=== PATIENT | male | born 1960 | race Caucasian/White ===

== ENCOUNTER 2017-08-27 06:04 | Emergency (ER) | payer OTHER ==
[~2017-08-27] VITALS: Ht 162.6 cm; Wt 68.0 kg
[~2017-08-27 06:04] MED LIST: CLON0.1T14 PO; DIAZ10TA3 PO; DIAZ5TAB3 PO; GABA-486 PO; GABA-490 PO; IBUP-30 PO; LISI20TA PO; PROP20TA5 PO; VENL150T4 PO; VITAMIN B12
--- NOTE | 2017-08-27 06:40 | ED Cough/URI ---
General Chief Complaint: Respiratory Problems Stated Complaint: COUGH,WEAKNESS Source: patient (LIMITED HISTORIAN ABOUT PMH) History of Present Illness Time seen by provider: 06:26 Initial Comments PT ARRIVES VIA POV FROM HOME C/O NON-PRODUCTIVE COUGH AND SHORTNESS OF BREATH X 2 WEEKS NO FEVER NO CHEST PAIN SEEN BY [facility] 10 DAYS AGO AND WAS PLACED ON CIPRO AND MUCINEX-- NO IMPROVEMENT IN SYMPTOMS NO HISTORY OF SIMILAR NO HISTORY OF RESPIRATORY PROBLEMS SMOKES 1 PPD PT IS ADAMANT ON ARRIVAL THAT HE WILL NOT BE STAYING IN THE HOSPITAL PCP: DR. MCKEON/[facility] Allergies and Home Medications Allergies Coded Allergies: Ulvufov-Yib-Aef Reductase Inhibitor (Verified Allergy, Mild, NAUSEA, ) Sulfa (Sulfonamide Antibiotics) (Unverified Allergy, Unknown, 06/04/14) aspirin (Unverified Allergy, Unknown, 06/04/14) Home Medications Albuterol Sulfate 1 Puff Puff, 2 PUFF IH Q4H, #1 Prescribed by: TYRELL ISBELL on 08/27/17 0838 Benzonatate 100 Mg Capsule, 1-2 TAB PO TID, #30 Prescribed by: TYRELL ISBELL on 08/27/17 0838 Cefdinir 300 Mg Capsule, 300 MG PO BID, #20 Prescribed by: TYRELL ISBELL on 08/27/17 0838 Clonidine HCl 0.1 Mg Tablet, 0.1 MG PO BID, (Reported) Diazepam 10 Mg Tablet, 30 MG PO AM, (Reported) Diazepam 10 Mg Tablet, 30 MG PO PM, (Reported) Ibuprofen 200 Mg Tablet, 400 MG PO HS, (Reported) Lisinopril 20 Mg Tablet, 40 MG PO DAILY, (Reported) Methylprednisolone 4 Mg Tab.ds.pk, 4 MG PO UD, #1 Prescribed by: TYRELL ISBELL on 08/27/17 0838 Propranolol Hcl 20 Mg Tablet, 20 MG PO BID, (Reported) Venlafaxine Hcl 150 Mg Tab.osm.24, 300 MG PO DAILY, (Reported) [Vitamin B12] , (Reported) Constitutional: no symptoms reported, No chills, No fever EENTM: no symptoms reported Respiratory: see HPI, cough, short of breath Cardiovascular: no symptoms reported Gastrointestinal: no symptoms reported Genitourinary: no symptoms reported Musculoskeletal: no symptoms reported Skin: no symptoms reported Psychiatric/Neurological: No Symptoms Reported Hematologic/Lymphatic: No Symptoms Reported Immunological/Allergic: no symptoms reported Past Pulesuz-Erpjzg-Wodkvh Hx Patient Social History Alcohol Use: Regular Use (ON PRIOR VISITS HAS STATED --A COUPLE OF OZ OF WINE + NO MORE THAN 3 BEERS/DAY. ON 08/27/17, PT STATES "A COUPLE OF SHOTS OF VODKA A DAY") Recreational Drug Use: No Smoking Status: Current Everyday Smoker (1 PPD) Type Used: Cigarettes Recent Foreign Travel: No Contact w/Someone Who Travel: No Surgeries History of Surgeries: Yes (COLONOSCOPY; CATARACT SURGERY) Surgeries: Eye Surgery Respiratory History of Respiratory Disorde: No Cardiovascular History of Cardiac Disorders: Yes Cardiac Disorders: High Cholesterol, Hypertension Neurological History of Neurological Disord: No Reproductive System Hx Reproductive Disorders: No Genitourinary History of Genitourinary Disor: No Gastrointestinal History of Gastrointestinal Di: No (NORMAL COLONOSCOPY 2013) Musculoskeletal History of Musculoskeletal Dis: Yes Musculoskeletal Disorders: Fibromyalgia, Chronic Back Pain Endocrine History of Endocrine Disorders: No HEENT History of HEENT Disorders: Yes HEENT Disorders: Cataract Cancer History of Cancer: No Psychosocial History of Psychiatric Problem: Yes Behavioral Health Disorders: Sleep Difficulties, Anxiety, Depression Integumentary History of Skin or Integumenta: No Blood Transfusions History of Blood Disorders: No Family Medical History Family Medial History: Alcoholism mother brother Alzheimer's disease 19 FATHER Arthritis Cardiovascular disease paternal grandmother, maternal grandmother, Cataracts 19 FATHER 19 MOTHER G8 BROTHER paternal grandmother maternal grandmother, Dementia 19 FATHER Diabetes mellitus paternal grandfather, Fibrocystic disease of breast 19 MOTHER Hypertension 19 FATHER Myocardial infarction paternal grandfather, No Family History of: AIDS Abdominal aortic aneurysm Tony's disease Aphasia Asthma Cancer of mouth Colon cancer Completed stroke Congenital disease Congenital heart disease Coronary thrombosis Cystic fibrosis Deafness or hearing loss Drug abuse Dysphasia Gastroenteritis Glaucoma Headache disorder Hypercholesterolemia Infertility Not obtainable due to adoption Osteoporosis Parkinson's disease Prostate cancer Psychosocial problem Respiratory disorder Seizure disorder Severe allergy Thyroid disease Tuberculosis Visual disorder Physical Exam Vital Signs Vital Sign - Last 12Hours 08/27/17 06:30 Temp 99.4 Pulse 109 Resp 18 B/P (MAP) 126/79 (95) Pulse Ox 92 O2 Delivery Nasal Cannula O2 Flow Rate 3.00 Capillary Refill : General Appearance: WD/WN, no apparent distress, other (VERY TREMULOUS) HEENT: PERRL/EOMI, normal ENT inspection, TMs normal, pharynx normal Neck: non-tender, full range of motion, supple, normal inspection Respiratory: no respiratory distress, no accessory muscle use, decreased breath sounds (ON RIGHT), rales, rhonchi, other (ENTIRE RIGHT SIDE WITH DIFFUSE RALES /RHONCHI) Cardiovascular: normal peripheral pulses, no edema, no JVD, no murmur, tachycardia (MILD 100-110) Gastrointestinal: normal bowel sounds, non tender, soft, no organomegaly Extremities: normal range of motion, non-tender, normal inspection, no pedal edema, no calf tenderness, normal capillary refill Neurologic/Psychiatric: 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, no motor/sensory deficits, alert, normal mood/affect, oriented x 3 Skin: normal color, warm/dry Focused Exam Evaluation Lactate Level Laboratory Tests 08/27/17 06:48: Lactic Acid Level 1.34 Lactic Acid Level Laboratory Tests Test 08/27/17 06:48 Lactic Acid Level 1.34 MMOL/L (0.50-2.00) Progress/Results/Core Measures Suspected Sepsis SIRS Temperature: Pulse: Respiratory Rate: Laboratory Tests 08/27/17 06:48: White Blood Count 7.2 Blood Pressure / Mean: Laboratory Tests 08/27/17 06:48: Lactic Acid Level 1.34 Laboratory Tests 08/27/17 06:48: Creatinine 0.71, INR Comment 0.8, Platelet Count 237, Total Bilirubin 0.2 Results/Orders Lab Results Laboratory Tests Test 08/27/17 06:48 08/27/17 07:10 08/27/17 07:13 Range/Units White Blood Count 7.2 4.3-11.0 10^3/uL Red Blood Count 3.65 L 4.35-5.85 10^6/uL Hemoglobin 12.2 L 13.3-17.7 G/DL Hematocrit 36 L 40-54 % Mean Corpuscular Volume 97 80-99 FL Mean Corpuscular Hemoglobin 33 25-34 PG Mean Corpuscular Hemoglobin Concent 34 32-36 G/DL Red Cell Distribution Width 14.4 10.0-14.5 % Platelet Count 237 130-400 10^3/uL Mean Platelet Volume 9.3 7.4-10.4 FL Neutrophils (%) (Auto) 79 H 42-75 % Lymphocytes (%) (Auto) 11 L 12-44 % Monocytes (%) (Auto) 9 0-12 % Eosinophils (%) (Auto) 0 0-10 % Basophils (%) (Auto) 1 0-10 % Neutrophils # (Auto) 5.7 1.8-7.8 X 10^3 Lymphocytes # (Auto) 0.8 L 1.0-4.0 X 10^3 Monocytes # (Auto) 0.7 0.0-1.0 X 10^3 Eosinophils # (Auto) 0.0 0.0-0.3 10^3/uL Basophils # (Auto) 0.0 0.0-0.1 10^3/uL Prothrombin Time 11.6 L 12.2-14.7 SEC INR Comment 0.8 0.8-1.4 Activated Partial Thromboplast Time 32 24-35 SEC Sodium Level 137 135-145 MMOL/L Potassium Level 3.2 L 3.6-5.0 MMOL/L Chloride Level 100 98-107 MMOL/L Carbon Dioxide Level 21 21-32 MMOL/L Anion Gap 16 H 5-14 MMOL/L Blood Urea Nitrogen 9 7-18 MG/DL Creatinine 0.71 0.60-1.30 MG/DL Estimat Glomerular Filtration Rate > 60 BUN/Creatinine Ratio 13 Glucose Level 103 70-105 MG/DL Lactic Acid Level 1.34 0.50-2.00 MMOL/L Calcium Level 8.8 8.5-10.1 MG/DL Magnesium Level 1.7 L 1.8-2.4 MG/DL Total Bilirubin 0.2 0.1-1.0 MG/DL Aspartate Amino Transf (AST/SGOT) 270 H 5-34 U/L Alanine Aminotransferase (ALT/SGPT) 122 H 0-55 U/L Alkaline Phosphatase 207 H 40-136 U/L Total Protein 6.5 6.4-8.2 GM/DL Albumin 3.7 3.2-4.5 GM/DL Serum Alcohol < 10 <10 MG/DL Blood Gas Puncture Site r radial Blood Gas Patient Temperature 99 Arterial Blood pH 7.45 H 7.37-7.43 Arterial Blood Partial Pressure CO2 36 35-45 MMHG Arterial Blood Partial Pressure O2 65 L 79-93 MMHG Arterial Blood HCO3 24 23-27 MMOL/L Arterial Blood Total CO2 25.4 21.0-31.0 MMOL/L Arterial Blood Oxygen Saturation 93 L 94-100 % Arterial Blood Base Excess 0.8 -2.5-2.5 MMOL/L Martín Test YES-POS Blood Gas Ventilator Setting NA Blood Gas Inspired Oxygen NA Urine Color YELLOW Urine Clarity CLEAR Urine pH 6 5-9 Urine Specific [place] 1.010 L 1.016-1.022 Urine Protein NEGATIVE NEGATIVE Urine Glucose (UA) NEGATIVE NEGATIVE Urine Ketones NEGATIVE NEGATIVE Urine Nitrite NEGATIVE NEGATIVE Urine Bilirubin NEGATIVE NEGATIVE Urine Urobilinogen NORMAL NORMAL MG/DL Urine Leukocyte Esterase NEGATIVE NEGATIVE Urine RBC (Auto) NEGATIVE NEGATIVE Urine RBC NONE /HPF Urine WBC NONE /HPF Urine Squamous Epithelial Cells NONE /HPF Urine Crystals NONE /LPF Urine Bacteria NEGATIVE /HPF Urine Casts NONE /LPF Urine Mucus NEGATIVE /LPF Urine Culture Indicated NO Urine Opiates Screen NEGATIVE NEGATIVE Urine Oxycodone Screen NEGATIVE NEGATIVE Urine Methadone Screen NEGATIVE NEGATIVE Urine Propoxyphene Screen NEGATIVE NEGATIVE Urine Barbiturates Screen NEGATIVE NEGATIVE Ur Tricyclic Antidepressants Screen NEGATIVE NEGATIVE Urine Phencyclidine Screen NEGATIVE NEGATIVE Urine Amphetamines Screen NEGATIVE NEGATIVE Urine Methamphetamines Screen NEGATIVE NEGATIVE Urine Benzodiazepines Screen POSITIVE H NEGATIVE Urine Cocaine Screen NEGATIVE NEGATIVE Urine Cannabinoids Screen NEGATIVE NEGATIVE Micro Results Microbiology 08/27/17 Influenza Types A,B Antigen (KIRBY) - Final, Complete My Orders Orders - TYRELL ISBELL DO Cbc With Automated Diff (08/27/17 06:31) Comprehensive Metabolic Panel (08/27/17 06:31) Lactic Acid Analyzer (08/27/17 06:31) Blood Culture (08/27/17 06:31) Sputum Culture (08/27/17 06:31) Ua Culture If Indicated (08/27/17 06:31) Protime With Inr (08/27/17 06:31) Partial Thromboplastin Time (08/27/17 06:31) O2 (08/27/17 06:31) Saline Lock/Iv-Start (08/27/17 06:31) Saline Lock/Iv-Start (08/27/17 06:31) Vital Signs Adult Sepsis Patie Q1H (08/27/17 06:31) Remove Rings In Anticipation O (08/27/17 06:31) Influenza A And B Antigens (08/27/17 06:31) Magnesium (08/27/17 06:31) Chest Pa/Lat (2 View) (08/27/17 06:31) Albuterol/Ipra Inhalation Soln (Duoneb I (08/27/17 06:45) Rt Request For Service (08/27/17 06:31) Svn Sm Volume Nebulizer Rt-Rfs (08/27/17 06:31) Alcohol (08/27/17 06:47) Drug Screen Stat (Urine) (08/27/17 06:47) Arterial Blood Gas (08/27/17 07:10) Albuterol/Ipra Inhalation Soln (Duoneb I (08/27/17 07:15) Dexamethasone Injection (Decadron Inject (08/27/17 07:15) Svn Sm Volume Nebulizer Rt-Rfs (08/27/17 07:10) Hepatitis Panel Acute (08/27/17 07:29) Methylprednisolone Sod Succ (Solu-Medrol (08/27/17 07:45) Magnesium Oxide Tablet (Mag Ox Tablet) (08/27/17 07:45) Oseltamivir 75 Mg (10's) Caps (Tamiflu 7 (08/27/17 09:00) Rx-Oseltamivir Caps (Rx-Tamiflu Caps) (08/27/17 08:08) Medications Given in ED Current Medications Medications Dose Ordered Sig/Marilee Route Start Time Stop Time Status Last Admin Dose Admin Albuterol/ Ipratropium 3 ml ONCE ONCE INH 08/27/17 06:45 08/27/17 06:46 DC 08/27/17 06:49 3 ML Albuterol/ Ipratropium 3 ml ONCE ONCE INH 08/27/17 07:15 08/27/17 07:16 DC 08/27/17 07:20 3 ML Dexamethasone Sodium Phosphate 20 mg ONCE ONCE IH 08/27/17 07:15 08/27/17 07:16 DC 08/27/17 07:19 20 MG Magnesium Oxide 800 mg ONCE ONCE PO 08/27/17 07:45 08/27/17 07:46 DC 08/27/17 07:41 800 MG Methylprednisolone Sodium Succinate 125 mg ONCE ONCE IVP 08/27/17 07:45 08/27/17 07:46 DC 08/27/17 07:42 125 MG Vital Signs/I&O Vital Sign - Last 12Hours 08/27/17 08/27/17 08/27/1708/27/17 06:30 06:40 06:49 08:05 Temp 99.4 Pulse 109 107 Resp 18 18 B/P (MAP) 126/79 (95) 131/73 (92) Pulse Ox 92 98 94 O2 Delivery Nasal Cannula Nasal Cannula Nasal Cannula OxyMask O2 Flow Rate 3.00 4.00 3.00 8.00 Capillary Refill : Progress Note : Progress Note O2 SATS 88% ON ROOM AIR ON ARRIVAL--PLACED ON O2 AT 5L/NC--UP TO 90% PLACED ON OXIMASK AT 8L AND SATS UP TO 94- 99% STRONGLY ADVISED/ENCOURAGED PT THAT HE NEEDED HOSPITALIZATION DUE TO HIS PNEUMONIA AND HYPOXIA, AND PT ADAMANTLY REFUSES. AMA PAPERS SIGNED Diagnostic Imaging Comments CXR--RIGHT MID LUNG ATELECTASIS, BIBASILAR ATELECTASIS--PER RADIOLOGIST REPORT @ 0808 Reviewed: Reviewed by Me Departure Communication (Admissions) Progress Notes 0758--SPOKE WITH DR. MCKEON, HE IS ON HIS WAY TO HOSPITAL AND WILL BE IN TO SEE PT 0818--DR. MCKEON HERE TO SEE PT. HE IS UNABLE TO CONVINCE PT TO STAY, AND HAS EVEN CONTACTED PT'S FAMILY TO TRY TO CONVINCE HIM TO STAY, AND PT STILL ADAMANTLY REFUSES. AMA PAPERS SIGNED. Impression Impression: Primary Impression: PNEUMONIA WITH HYPOXIA Additional Impressions: Influenza B Elevated liver enzymes Alcohol abuse Disposition: AGAINST MEDICAL ADVICE Condition: Against Medical Advice Departure-Patient Inst. Referrals: DIONISIO MCKEON DO (PCP/Family) Primary Care Physician Patient Instructions: Flu, Adult (DC), Pneumonia, Adult (DC) Add. Discharge Instructions: MUCINEX DM FOR COUGH TYLENOL AND MOTRIN FOR PAIN OR FEVER FOLLOW UP WITH DR. MCKEON THIS WEEK FOR FURTHER CARE RETURN TO ER IF SYMPTOMS WORSEN WEAR A MASK AT ALL TIMES All discharge instructions reviewed with patient and/or family. Voiced understanding. Scripts Albuterol Sulfate (PROAIR HFA) 1 Puff Puff 2 PUFF IH Q4H for BREATHING, #1 UNIT Prov: TYRELL ISBELL DO 08/27/17 Methylprednisolone (Medrol) 4 Mg Tab.ds.pk 4 MG PO UD, #1 PKG Prov: TYRELL ISBELL DO 08/27/17 Benzonatate (Tessalon Perle) 100 Mg Capsule 1-2 TAB PO TID for Cough, #30 CAP Prov: TYRELL ISBELL DO 08/27/17 Cefdinir (Cefdinir) 300 Mg Capsule 300 MG PO BID for FOR INFECTION, #20 CAP Prov: TYRELL ISBELL DO 08/27/17 TYRELL ISBELL DO Aug 27, 2017 06:40
[2017-08-27] MEDS ORDERED: RT-ALBUTEROL/IPRATROPIUM 3 ML (DUONEB) VIAL INH ONE ×2 (06:45→07:15)
[2017-08-27 07:03] LABS: BASOPHILS % (AUTO) 1 % (0-10); EOSINOPHILS % (AUTO) 0 % (0-10); LYMPHOCYTES # (AUTO) 0.8 X 10^3 (1.0-4.0); LYMPHOCYTES % (AUTO) 11 % (12-44); MEAN CORPUSCULAR HEMOGLOBIN 33 PG (25-34); MEAN CORPUSCULAR HGB CONC 34 G/DL (32-36); MEAN CORPUSCULAR VOLUME 97 FL (80-99); MEAN PLATELET VOLUME 9.3 FL (7.4-10.4); MONOCYTES # (AUTO) 0.7 X 10^3 (0.0-1.0); MONOCYTES % (AUTO) 9 % (0-12); NEUTROPHILS # (AUTO) 5.7 X 10^3 (1.8-7.8); NEUTROPHILS % (AUTO) 79 % (42-75); PLATELET COUNT 237 10^3/uL (130-400); RED BLOOD COUNT 3.65 10^6/uL (4.35-5.85); RED CELL DISTRIBUTION WIDTH 14.4 % (10.0-14.5); WHITE BLOOD COUNT 7.2 10^3/uL (4.3-11.0)
[2017-08-27 07:14] LABS: INR 0.8 (0.8-1.4); PROTHROMBIN TIME PATIENT 11.6 SEC (12.2-14.7)
[2017-08-27] MEDS ORDERED: DEXAMETHASONE 4 MG/ML SDV (DECADRON) IH ONE (07:15)
[2017-08-27 07:22] LABS: BILIRUBIN,URINE NEGATIVE (NEGATIVE); KETONES,URINE NEGATIVE (NEGATIVE); LEUKOCYTE ESTERASE ,URINE NEGATIVE (NEGATIVE); NITRITE,URINE NEGATIVE (NEGATIVE); PH,URINE 6 (5-9); PROTEIN,URINE NEGATIVE (NEGATIVE); UROBILINOGEN,URINE NORMAL (NORMAL)
[2017-08-27 07:24] LABS: ALANINE AMINOTRANSFERASE 122 U/L (0-55); ALBUMIN 3.7 GM/DL (3.2-4.5); ALCOHOL < 10 MG/DL (<10); ANION GAP 16 MMOL/L (5-14); ASPARTATE AMINO TRANSFERASE 270 U/L (5-34); BILIRUBIN,TOTAL 0.2 MG/DL (0.1-1.0); BLOOD UREA NITROGEN 9 MG/DL (7-18); BUN/CREATININE RATIO 13; CALCIUM 8.8 MG/DL (8.5-10.1); CARBON DIOXIDE 21 MMOL/L (21-32); CHLORIDE 100 MMOL/L (98-107); CREATININE SERUM 0.71 MG/DL (0.60-1.30); GFR ESTIMATED > 60; GLUCOSE 103 MG/DL (70-105); MAGNESIUM 1.7 MG/DL (1.8-2.4); POTASSIUM 3.2 MMOL/L (3.6-5.0); SODIUM 137 MMOL/L (135-145); TOTAL PROTEIN 6.5 GM/DL (6.4-8.2)
[2017-08-27 07:40] LABS: ABG BASE EXCESS 0.8 MMOL/L (-2.5-2.5); ABG HCO3 24 MMOL/L (23-27); ABG OXYGEN SATURATION 93 % (94-100); ABG PCO2 36 MMHG (35-45); ABG PH 7.45 (7.37-7.43); ABG PO2 65 MMHG (79-93); ABG TCO2 25.4 MMOL/L (21.0-31.0)
[2017-08-27 07:41] LABS: ALLENS TEST YES-POS; PATIENT TEMP 99
[2017-08-27] MEDS ORDERED: methylPREDNISolone 125 MG (Solu-MEDROL) VIAL IVP ONE (07:45)
[2017-08-27] MEDS ORDERED: MAGNESIUM OXIDE (MAG-OX)400 MG TAB PO ONE (07:45)
--- NOTE | 2017-08-27 08:01 | Diagnostic Imaging Report ---
INDICATION: Cough and weakness for 10 days. PA and lateral views of the chest are obtained. Comparison is made study of 06/04/2014. FINDINGS: Overall heart size and pulmonary vascularity are within normal limits. There has been mild increase in linear density in the lung bases, left greater than right. Linear atelectasis and/or scarring is also noted in right midlung. There is no evidence of pneumothorax or significant pleural fluid. No consolidation is identified. IMPRESSION: Probable increasing subsegmental atelectasis or scarring in the lung bases and right midlung. No consolidation, pneumothorax or significant pleural fluid is identified. Dictated by: Dictated on workstation # [id number]
[2017-08-27 08:05] VITALS: BP 131/73
[2017-08-27] MEDS ORDERED: RX-OSELTAMIVIR 75 MG (TAMIFLU) BOX OF 10 PO ONE (08:08)
[2017-08-27 08:36] VITALS: BP 135/79
[2017-08-27] MEDS ORDERED: BENZ-13 PO (08:38)
[2017-08-27] MEDS ORDERED: CEFD300C3 PO (08:38)
[2017-08-27] MEDS ORDERED: METH4TAB PO (08:38)
[2017-08-27] MEDS ORDERED: RT-ALBUINH IH (08:38)
[2017-08-27] MEDS ORDERED: OSELTAMIVIR 75 MG (TAMIFLU) BOX OF 10 PO SCH (09:00)
--- OUTSIDE RECORDS SUMMARY | 2017-08-27 10:27 | XMS REPORT | Continuity of Care Document ---
Author Author [facility] Organization [facility] Address Unknown Phone Unavailable Allergies Active Description Code Type Severity Reaction Onset Reported/Identified Relationship to Patient Clinical Status Yes aspirin Drug Allergy N/A N/A 12/30/2011 Yes Sulfamylon Drug Allergy N/A N/A 12/30/2011 Yes aspirin Drug Allergy 12/30/2011 Yes Sulfamylon Drug Allergy 12/30/2011 Yes lithium carbonate 300 mg tablet extended release Drug Allergy N/A N/A Yes Vfbdcna-Dgm-Esj Reductase Inhibitor [id number] Drug Allergy Mild NAUSEA Yes aspirin [id number] Drug Allergy Unknown N/A 06/04/2014 Yes Sulfa (Sulfonamide Antibiotics) [id number] Drug Allergy Unknown N/A 2013 Yes Sulfa (Sulfonamide Antibiotics) Drug Allergy N/A N/A 07/24/2014 Medications There is no data. Problems Date Dx Coded Attending Type Code Diagnosis Diagnosed By 12/30/2011 CARNI SHELDON DO 311 DEPRESSIVE DISORDER NOS 12/30/2011 CARIN SHELDON DO 311 DEPRESSIVE DISORDER NOS 12/30/2011 ELE WOODS JR 311 DEPRESSIVE DISORDER NOS 12/30/2011 ANOOP EDOUARD MD 311 DEPRESSIVE DISORDER NOS 12/30/2011 ELE WOODS JR 311 DEPRESSIVE DISORDER NOS 12/30/2011 ANOOP EDOUARD MD 311 DEPRESSIVE DISORDER NOS 12/30/2011 ELE WOODS JR 311 DEPRESSIVE DISORDER NOS 12/30/2011 ELE WOODS JR 311 DEPRESSIVE DISORDER NOS 12/30/2011 ELE WOODS JR 311 DEPRESSIVE DISORDER NOS 12/30/2011 ELE WOODS JR 311 DEPRESSIVE DISORDER NOS 12/30/2011 ELE WOODS JR 311 DEPRESSIVE DISORDER NOS 01/15/2012 CARIN SHELDON DO 300.00 AN ANXIETY UNSPEC 01/15/2012 CARIN SHELDON DO 300.00 AN ANXIETY UNSPEC 01/15/2012 ELE WOODS JR 300.00 AN ANXIETY UNSPEC 01/15/2012 ANOOP EDOUARD MD 300.00 AN ANXIETY UNSPEC 01/15/2012 ELE WOODS JR 300.00 AN ANXIETY UNSPEC 01/15/2012 ANOOP EDOUARD MD 300.00 AN ANXIETY UNSPEC 01/15/2012 ELE WOODS JR 300.00 AN ANXIETY UNSPEC 01/15/2012 ELE WOODS JR 300.00 AN ANXIETY UNSPEC 01/15/2012 ELE WOODS JR S 300.00 AN ANXIETY UNSPEC 01/15/2012 ELE WOODS JR S 300.00 AN ANXIETY UNSPEC 01/15/2012 ELE WOODS JR 300.00 AN ANXIETY UNSPEC 02/05/2012 CARIN SHELDON DO V58.69 MEDICATION HIGH RISK 02/05/2012 CARIN SHELDON DO V58.69 MEDICATION HIGH RISK 02/05/2012 ELE WOODS JR V58.69 MEDICATION HIGH RISK 02/05/2012 ANOOP EDOUARD MD V58.69 MEDICATION HIGH RISK 02/05/2012 ELE WOODS JR V58.69 MEDICATION HIGH RISK 02/05/2012 ANOOP EDOUARD MD V58.69 MEDICATION HIGH RISK 02/05/2012 ELE WOODS JR V58.69 MEDICATION HIGH RISK 02/05/2012 ELE WOODS JR V58.69 MEDICATION HIGH RISK 02/05/2012 ELE WOODS JR V58.69 MEDICATION HIGH RISK 02/05/2012 ELE WOODS JR V58.69 MEDICATION HIGH RISK 02/05/2012 ELE WOODS JR V58.69 MEDICATION HIGH RISK 04/01/2012 CARIN SHELDON DO 300.02 AN GEN ANXIETY 04/01/2012 CARIN SHELDON DO 300.02 AN GEN ANXIETY 04/01/2012 ELE WOODS JR 300.02 AN GEN ANXIETY 04/01/2012 ANOOP EDOUARD MD 300.02 AN GEN ANXIETY 04/01/2012 ELE WOODS JR 300.02 AN GEN ANXIETY 04/01/2012 ANOOP EDOUARD MD 300.02 AN GEN ANXIETY 04/01/2012 ELE WOODS JR 300.02 AN GEN ANXIETY 04/01/2012 ELE WOODS JR 300.02 AN GEN ANXIETY 04/01/2012 ELE WOODS JR 300.02 AN GEN ANXIETY 04/01/2012 ELE WOODS JR 300.02 AN GEN ANXIETY 04/01/2012 ELE WOODS JR 300.02 AN GEN ANXIETY 04/05/2012 MONALISA VARGAS CARIN Michelle 307.47 SI DYSSOMNIA NOS 04/05/2012 MONALISA CARIN Michelle 307.47 SI DYSSOMNIA NOS 04/05/2012 ELE WOODS JR 307.47 SI DYSSOMNIA NOS 04/05/2012 ANOOP EDOUARD MD 307.47 SI DYSSOMNIA NOS 04/05/2012 ELE WOODS JR 307.47 SI DYSSOMNIA NOS 04/05/2012 ANOOP EDOUARD MD 307.47 SI DYSSOMNIA NOS 04/05/2012 ELE WOODS JR 307.47 SI DYSSOMNIA NOS 04/05/2012 ELE WOODS JR 307.47 SI DYSSOMNIA NOS 04/05/2012 ELE WOODS JR 307.47 SI DYSSOMNIA NOS 04/05/2012 ELE WOODS JR 307.47 SI DYSSOMNIA NOS 04/05/2012 ELE WOODS JR 307.47 SI DYSSOMNIA NOS 06/05/2014 SHARLENE HOWELL FACC, ALI FACP CCDS Ot 272.4 06/05/2014 SHARLENE HOWELL FAC, ALI FACP CCDS Ot 300.00 06/05/2014 SHARLENE HOWELL FACC, ALI FACP CCDS Ot 305.1 06/05/2014 SHARLENE HOWELL FACC, ALI FACP CCDS Ot 311 06/05/2014 SHARLENE HOWELL FACC, ALI FACP CCDS Ot 401.9 06/05/2014 SHARLENE HOWELL FACC, ALI FACP CCDS Ot 724.5 06/05/2014 SHARLENE HOWELL FACC, ALI FACP CCDS Ot 786.50 06/05/2014 SHARLENE HOWELL FACC, ALI FACP CCDS Ot V58.64 Procedures Code Description [place] [address] PSYCH IND W/MED CK 20 07/12/2012 97888 EKG, TRACING (IN-HOUSE) 09/19/2013 84087 UA LONG DIP 09/19/2013 Results Test Result Range Complete blood count (CBC) with automated white blood cell (WBC) differential - 08/27/17 06:48 Blood leukocytes automated count (number/volume) 7.2 10*3/uL 4.3-11.0 Blood erythrocytes automated count (number/volume) 3.65 10*6/uL 4.35-5.85 Venous blood hemoglobin measurement (mass/volume) 12.2 g/dL 13.3-17.7 Blood hematocrit (volume fraction) 36 % 40-54 Automated erythrocyte mean corpuscular volume 97 [foz_us] 80-99 Automated erythrocyte mean corpuscular hemoglobin (mass per erythrocyte) 33 pg 25-34 Automated erythrocyte mean corpuscular hemoglobin concentration measurement ( mass/volume) 34 g/dL 32-36 Automated erythrocyte distribution width ratio 14.4 % 10.0-14.5 Automated blood platelet count (count/volume) 237 10*3/uL 130-400 Automated blood platelet mean volume measurement 9.3 [foz_us] 7.4-10.4 Automated blood neutrophils/100 leukocytes 79 % 42-75 Automated blood lymphocytes/100 leukocytes 11 % 12-44 Blood monocytes/100 leukocytes 9 % 0-12 Automated blood eosinophils/100 leukocytes 0 % 0-10 Automated blood basophils/100 leukocytes 1 % 0-10 Blood neutrophils automated count (number/volume) 5.7 10*3 1.8-7.8 Blood lymphocytes automated count (number/volume) 0.8 10*3 1.0-4.0 Blood monocytes automated count (number/volume) 0.7 10*3 0.0-1.0 Automated eosinophil count 0.0 10*3/uL 0.0-0.3 Automated blood basophil count (count/volume) 0.0 10*3/uL 0.0-0.1 PT panel in platelet poor plasma by coagulation assay - 08/27/17 06:48 Prothrombin time (PT) in platelet poor plasma by coagulation assay 11.6 s 12.2-14.7 INR in platelet poor plasma or blood by coagulation assay 0.8 0.8-1.4 Activated partial thromboplastin time (aPTT) in platelet poor plasma bycoagulation assay - 08/27/17 06:48 Activated partial thromboplastin time (aPTT) in platelet poor plasma bycoagulation assay 32 s 24-35 Blood lactic acid measurement (moles/volume) - 08/27/17 06:48 Blood lactic acid measurement (moles/volume) 1.34 mmol/L 0.50-2.00 Comprehensive metabolic panel - 08/27/17 06:48 Serum or plasma sodium measurement (moles/volume) 137 mmol/L 135-145 Serum or plasma potassium measurement (moles/volume) 3.2 mmol/L 3.6-5.0 Serum or plasma chloride measurement (moles/volume) 100 mmol/L 98-107 Carbon dioxide 21 mmol/L 21-32 Serum or plasma anion gap determination (moles/volume) 16 mmol/L 5-14 Serum or plasma urea nitrogen measurement (mass/volume) 9 mg/dL 7-18 Serum or plasma creatinine measurement (mass/volume) 0.71 mg/dL 0.60-1.30 Serum or plasma urea nitrogen/creatinine mass ratio 13 NRG Serum or plasma creatinine measurement with calculation of estimated glomerular filtration rate > NRG Serum or plasma glucose measurement (mass/volume) 103 mg/dL 70-105 Serum or plasma calcium measurement (mass/volume) 8.8 mg/dL 8.5-10.1 Serum or plasma total bilirubin measurement (mass/volume) 0.2 mg/dL 0.1-1.0 Serum or plasma alkaline phosphatase measurement (enzymatic activity/volume) 207 U/L 40-136 Serum or plasma aspartate aminotransferase measurement (enzymatic activity/ volume) 270 U/L 5-34 Serum or plasma alanine aminotransferase measurement (enzymatic activity/volume ) 122 U/L 0-55 Serum or plasma protein measurement (mass/volume) 6.5 g/dL 6.4-8.2 Serum or plasma albumin measurement (mass/volume) 3.7 g/dL 3.2-4.5 Magnesium - 08/27/17 06:48 Magnesium 1.7 mg/dL 1.8-2.4 Serum or plasma ethanol measurement (mass/volume) - 08/27/17 06:48 Serum or plasma ethanol measurement (mass/volume) < mg/dL <10 Influenza virus A and B antigen detection - 08/27/17 07:05 CALL POSITIVES (F1 HELP) [facility] FLU RESULT POSITIVE FOR INFLUENZA B ANTIGEN, NEG FOR A ANTIGEN, BY IA [facility] Arterial blood gas measurement - 08/27/17 07:10 Blood pCO2 36 mm[Hg] 35-45 Blood pO2 65 mm[Hg] 79-93 Arterial blood bicarbonate measurement (moles/volume) 24 mmol/L 23-27 Arterial blood base excess by calculation 0.8 mmol/L -2.5 -2.5 Arterial blood oxygen saturation measurement 93 % 94-100 * Inhaled oxygen flow rate NA NRG Arterial blood pH measurement with patient temperature correction 7.45 7.37-7.43 Arterial blood carbon dioxide, total measurement (moles/volume) 25.4 mmol/L 21.0-31.0 Body site r radial NRG Assessment of wrist artery patency prior to arterial puncture YES- POS NRG Setting of ventilation mode NA NRG Measurement of body temperature 99 NRG Complete urinalysis with reflex to culture - 08/27/17 07:13 Urine color determination YELLOW NRG Urine clarity determination CLEAR NRG Urine pH measurement by test strip 6 5-9 Specific gravity of urine by test strip 1.010 1.016- 1.022 Urine protein assay by test strip, semi-quantitative NEGATIVE NEGATIVE Urine glucose detection by automated test strip NEGATIVE NEGATIVE Erythrocytes detection in urine sediment by light microscopy NEGATIVE NEGATIVE Urine ketones detection by automated test strip NEGATIVE NEGATIVE Urine nitrite detection by test strip NEGATIVE NEGATIVE Urine total bilirubin detection by test strip NEGATIVE NEGATIVE Urine urobilinogen measurement by automated test strip (mass/volume) NORMAL NORMAL Urine leukocyte esterase detection by dipstick NEGATIVE NEGATIVE Automated urine sediment erythrocyte count by microscopy (number/high power field) NONE NRG Automated urine sediment leukocyte count by microscopy (number/high power field ) NONE NRG Bacteria detection in urine sediment by light microscopy NEGATIVE NRG Squamous epithelial cells detection in urine sediment by light microscopy NONE NRG Crystals detection in urine sediment by light microscopy NONE NRG Casts detection in urine sediment by light microscopy NONE NRG Mucus detection in urine sediment by light microscopy NEGATIVE NRG Complete urinalysis with reflex to culture NO NRG Urine drug screening test - 08/27/17 07:13 Urine phencyclidine detection by screening method NEGATIVE NEGATIVE Urine benzodiazepines detection by screening method POSITIVE NEGATIVE Urine cocaine detection NEGATIVE NEGATIVE Urine amphetamines detection by screening method NEGATIVE NEGATIVE Urine methamphetamine detection by screening method NEGATIVE NEGATIVE Urine cannabinoids detection by screening method NEGATIVE NEGATIVE Urine opiates detection by screening method NEGATIVE NEGATIVE Urine barbiturates detection NEGATIVE NEGATIVE Screening urine tricyclic antidepressants detection NEGATIVE NEGATIVE Urine methadone detection by screening method NEGATIVE NEGATIVE Urine oxycodone detection NEGATIVE NEGATIVE Urine propoxyphene detection NEGATIVE NEGATIVE Encounters ACCT No. Visit Date/Time Discharge Status Pt. Type Provider Facility Loc./Unit Complaint [id number] 06/04/2014 14:56:00 06/05/2014 18:30:00 DIS Inpatient SHARLENE HOWELL FACC, ELIE ZAMORANO CCDS [facility] [id number] 08/27/2017 07:08:00 Document Registration [id number] 06/26/2014 12:57:00 06/26/2014 23:59:59 CLS Outpatient ELE WOODS JR Todd [id number] 06/26/2014 12:57:00 06/26/2014 23:59:59 CLS Outpatient ELE WOODS JR [id number] 05/22/2014 13:31:00 05/22/2014 23:59:59 CLS Outpatient PEGGY VARGASELE Todd [id number] 04/17/2014 12:53:00 04/17/2014 23:59:59 CLS Outpatient PEGGY VARGASELE Todd [id number] 02/20/2014 12:49:00 02/20/2014 23:59:59 CLS Outpatient PEGGY VARGASELE Todd [id number] 10/21/2013 11:16:00 10/21/2013 23:59:59 CLS Outpatient ANOOP EDOUARD MD [id number] 09/30/2013 11:45:00 09/30/2013 23:59:59 CLS Outpatient ANOOP EDOUARD MD [id number] 09/19/2013 08:52:00 09/19/2013 23:59:59 CLS Outpatient PEGGY VARGAS ELE Todd [id number] 09/16/2013 13:46:00 09/16/2013 23:59:59 CLS Outpatient ELE WOODS JR [id number] 07/08/2012 10:39:00 07/08/2012 23:59:59 [place] [id number] 07/08/2012 10:39:00 07/08/2012 23:59:59 CLS Outpatient CARIN SHELDON DO
[2017-08-27] MEDS ORDERED: GUAI600T43 PO ×2 (13:09)
[2017-08-27] MEDS ORDERED: DIAZ10TA3 PO ×2 (13:09)
[2017-08-27] MEDS ORDERED: TRAZ-28 PO ×2 (13:09)
[2017-08-27] MEDS ORDERED: VENL150C98 PO ×2 (13:09)
[2017-08-27] MEDS ORDERED: RISP1TAB3 PO ×2 (13:09)
[2017-08-27] MEDS ORDERED: DIAZ5TAB3 PO ×2 (13:09)
[2017-08-27] MEDS ORDERED: CIPR500T4 PO ×2 (13:09)
[2017-08-27] MEDS ORDERED: CLON0.1T PO ×2 (13:09)
[2017-08-27] MEDS ORDERED: LISI-552 PO ×2 (13:09)
[2017-08-27] MEDS ORDERED: IBUP-2055 PO ×2 (14:01)
== END 2017-08-27 08:36 | disposition left against medical advice (07) ==
LOC: EDUNIT# 06:04 → ER 06:07
DX: J18.9 Pneumonia, unspecified organism (principal); J10.1 Influenza due to other identified influenza virus with other respiratory manifestations; F10.10 Alcohol abuse, uncomplicated; R94.5 Abnormal results of liver function studies; E78.00 Pure hypercholesterolemia, unspecified; I10 Essential (primary) hypertension; F41.9 Anxiety disorder, unspecified; F32.9 Major depressive disorder, single episode, unspecified; F17.210 Nicotine dependence, cigarettes, uncomplicated; Z82.49 Family history of ischemic heart disease and other diseases of the circulatory system
CPT/HCPCS: 36415; 71020; 80053; 80074; 80306; 80320; 81000; 82805; 83605; 83735; 85025; 85610; 85730; 87040; 87804; 94640

== ENCOUNTER 2017-08-27 10:12 | Inpatient (IN) | payer OTHER ==
[~2017-08-27] VITALS: Ht 162.6 cm; Wt 68.0 kg
[~2017-08-27 10:12] MED LIST changes: +BENZ-13 PO; +CEFD300C3 PO; +METH4TAB PO; +RT-ALBUINH IH
--- OUTSIDE RECORDS SUMMARY | 2017-08-27 11:00 | XMS REPORT | Continuity of Care Document ---
Author Author [facility] Organization [facility] Address Unknown Phone Unavailable Allergies Active Description Code Type Severity Reaction Onset Reported/Identified Relationship to Patient Clinical Status Yes aspirin Drug Allergy N/A N/A 12/30/2011 Yes Sulfamylon Drug Allergy N/A N/A 12/30/2011 Yes aspirin Drug Allergy 12/30/2011 Yes Sulfamylon Drug Allergy 12/30/2011 Yes lithium carbonate 300 mg tablet extended release Drug Allergy N/A N/A Yes Rrmeopi-Kvy-Czj Reductase Inhibitor [id number] Drug Allergy Mild NAUSEA Yes aspirin [id number] Drug Allergy Unknown N/A 06/04/2014 Yes Sulfa (Sulfonamide Antibiotics) [id number] Drug Allergy Unknown N/A 2013 Yes Sulfa (Sulfonamide Antibiotics) Drug Allergy N/A N/A 07/24/2014 Medications There is no data. Problems Date Dx Coded Attending Type Code Diagnosis Diagnosed By 12/30/2011 CARIN SHELDON DO 311 DEPRESSIVE DISORDER [...] JR 307.47 SI DYSSOMNIA NOS 04/05/2012 ELE WOOSD JR 307.47 SI DYSSOMNIA NOS 04/05/2012 ELE [...] Procedures Code [place] [address] PSYCH IND W/MED CK 20 07/12/2012 18145 EKG, TRACING (IN-HOUSE) 09/19/2013 89907 UA LONG DIP 09/19/2013 Results Test Result [...] - 08/27/17 07:05 CALL POSITIVES (F1 HELP) [facility] FLU RESULT POSITIVE FOR INFLUENZA B ANTIGEN, NEG FOR A ANTIGEN, BY IA [facility] Arterial blood gas measurement - 08/27/17 07:10 [...] Status Pt. Type Provider Facility Loc./Unit Complaint [id number] 06/04/2014 14:56:00 06/05/2014 18:30:00 DIS Inpatient SHARLENE HOWELL FACC, ELIE ZAMORANO CCDS [facility] [id number] 08/27/2017 07:08:00 Document Registration [id number] 06/26/2014 12:57:00 06/26/2014 23:59:59 CLS Outpatient ELE WOODS JR Todd [id number] 06/26/2014 12:57:00 06/26/2014 23:59:59 CLS Outpatient ELE WOODS JR [id number] 05/22/2014 13:31:00 05/22/2014 23:59:59 CLS Outpatient PEGGY VARGASELE Todd [id number] 04/17/2014 12:53:00 04/17/2014 23:59:59 CLS Outpatient PEGGY VARGASELE Todd [id number] 02/20/2014 12:49:00 02/20/2014 23:59:59 CLS Outpatient PEGGY VARGASELE Todd [id number] 10/21/2013 11:16:00 10/21/2013 23:59:59 CLS Outpatient ANOOP EDOUARD MD [id number] 09/30/2013 11:45:00 09/30/2013 23:59:59 CLS Outpatient ANOOP EDOUARD MD [id number] 09/19/2013 08:52:00 09/19/2013 23:59:59 CLS Outpatient PEGGY VARGAS ELE Todd [id number] 09/16/2013 13:46:00 09/16/2013 23:59:59 CLS Outpatient ELE WOODS JR [id number] 07/08/2012 10:39:00 07/08/2012 23:59:59 [place] [id number] 07/08/2012 10:39:00 07/08/2012 23:59:59 CLS Outpatient CARIN SHELDON DO
[2017-08-27] MEDS: OSELTAMIVIR 75 MG (TAMIFLU) BOX OF 10 PO SCH ×2 (11:05→21:51)
[2017-08-27] MEDS ORDERED: RT-ALBUTEROL SULF 2.5 MG/3 ML PRE-MIX VIAL INH PRN (11:30)
[2017-08-27 12:00] VITALS: BP 108/57
--- NOTE | 2017-08-27 12:56 | History & Physical-Hospitalist ---
HPI History of Present Illness: HPI/Chief Complaint Pt is a 57yoCM with a PMH of tobaccoism, depression, HTN, and anxiety who presented to the ER with CC of cough, congestion, and SOB. This has been going on for 10 days and was recently treated with cipro by his PCP and completed that course. He denies any fevers, sputum, or myalgias. He reports his brother and sister in law had the flu recently. He had not received his flu vaccine this year. He has not had a decreased appetite, nausea, or vomiting but has had some postussive gagging. He was seen in the ER earlier this morning and was hypxic on room air. He was found to be Flu B positive and admission was recommended but he declined and signed out AMA. He alledgedly discussed further with family and presented back to the ER and was direct admitted. Source: patient, family Exam Limitations: no limitations Date Seen 08/27/17 Time Seen by Provider: 10:30 Attending Physician Heather Stratton MD PCP Efrain Croft DO Referring Physician Date of Admission Aug 27, 2017 at 10:12 Home Medications & Allergies Home Medications Reviewed patient Home Medication Reconciliation Form Allergies Allergies Coded Allergies Qyadsnb-Agv-Aha Reductase Inhibitor (Verified Allergy, Mild, NAUSEA, 06/04/14) Sulfa (Sulfonamide Antibiotics) (Unverified Allergy, Unknown, 06/04/14) aspirin (Unverified Allergy, Unknown, 06/04/14) Past Clfzqvt-Cuqwlk-Jzpzqv Hx Patient Social History Alcohol Use: Past History (previous 4-5 drinks/day, quit 2016) Number of Drinks Today: 0 Alcohol Beverage of Choice: Beer Recreational Drug Use: No Smoking Status: Current Everyday Smoker Cigaretts per day: 10 Type Used: Cigarettes Physical Abuse Screen: No Sexual Abuse: No Recent Hopitalizations: No Seasonal Allergies Seasonal Allergies: No Surgeries Yes (COLONOSCOPY; CATARACT SURGERY) Eye Surgery Respiratory No Cardiovascular Yes High Cholesterol, Hypertension Neurological No Reproductive System Hx Reproductive Disorders: No Genitourinary No Gastrointestinal Yes (NORMAL COLONOSCOPY 2013) Diverticulosis Musculoskeletal Yes Fibromyalgia, Chronic Back Pain Endocrine History of Endocrine Disorders: No HEENT History of HEENT Disorders: Yes HEENT Disorders: Cataract Loss of Vision: Denies Hearing Impairment: Denies Cancer No Psychosocial History of Psychiatric Problem: Yes Behavioral Health Disorders: Sleep Difficulties, Anxiety, Depression Integumentary History of Skin or Integumenta: No Blood Transfusions History of Blood Disorders: No Adverse Reaction to a Blood Tr: No Family Medical History Family Hx: Alcoholism mother brother Alzheimer's disease 19 FATHER Arthritis Cardiovascular disease paternal grandmother, maternal grandmother, Cataracts 19 FATHER 19 MOTHER G8 BROTHER paternal grandmother maternal grandmother, Dementia 19 FATHER Diabetes mellitus paternal grandfather, Fibrocystic disease of breast 19 MOTHER Hypertension 19 FATHER Myocardial infarction paternal grandfather, No Family History of: AIDS Abdominal aortic aneurysm [place]'s disease Aphasia Asthma Cancer of mouth Colon cancer Completed stroke Congenital disease Congenital heart disease Coronary thrombosis Cystic fibrosis Deafness or hearing loss Drug abuse Dysphasia Gastroenteritis Glaucoma Headache disorder Hypercholesterolemia Infertility Not obtainable due to adoption Osteoporosis Parkinson's disease Prostate cancer Psychosocial problem Respiratory disorder Seizure disorder Severe allergy Thyroid disease Tuberculosis Visual disorder Review of Systems Constitutional: No chills, No fever, malaise EENTM: No blurred vision, No double vision, No nose congestion, No throat pain Respiratory: cough, No dyspnea on exertion, No phlegm, short of breath Cardiovascular: No chest pain, No edema, No palpitations Gastrointestinal: No abdominal pain, No constipation, No diarrhea, No nausea, No vomiting Genitourinary: No dysuria, No frequency Musculoskeletal: No joint pain, No muscle pain, No muscle cramps, No muscle weakness Skin: No lesions, No rash Psychiatric/Neurological: Denies Headache, Denies Numbness, Denies Tingling Physical Exam Physical Exam Vital Signs Vital Sign - Last 12Hours 08/27/17 08/27/17 11:17 12:00 Temp 98.8 Pulse 75 Resp 24 B/P (MAP) 108/57 (74) Pulse Ox 92 O2 Delivery Nasal Cannula O2 Flow Rate 7.00 Capillary Refill : General Appearance: No Apparent Distress, WD/WN HEENT: PERRL/EOMI, Moist Mucous Membranes Neck: Non Tender, Supple Respiratory: No Respiratory Distress, Decreased Breath Sounds, No Wheezing Cardiovascular: Regular Rate, Rhythm, No Murmur Gastrointestinal: Normal Bowel Sounds, Non Tender, Soft Extremity: Normal Capillary Refill, No Calf Tenderness Neurologic/Psychiatric: Alert, Oriented x3 Skin: Normal Color, Warm/Dry Assessment/Plan Admission Diagnosis Influenza B Diagnosis/Problems Diagnosis/Problems (1) Influenza B Status: Acute Assessment & Plan: Received tamiflu in ER this AM Will continue this evening On precautions (2) Hypoxia Status: Acute Assessment & Plan: No known oxygen requirement Titrate to keep oxygen >89 MAT protocol (3) Transaminitis Status: Acute Assessment & Plan: Trend, recheck in AM History of alcohol abuse- likely cause Normal Bili, platelets, albumin (4) Normocytic anemia Assessment & Plan: Very mild,trend (5) Hypokalemia Status: Acute Assessment & Plan: Will replace (6) Essential (primary) hypertension Status: Chronic Assessment & Plan: Continue home meds (7) Anxiety and depression Assessment & Plan: Continue home meds I confirmed he takes 35mg Valium in AM and 30mg Valium in PM for anxiety (8) Hypomagnesemia Status: Acute Assessment & Plan: Replaced in ER Will recheck in AM (9) Tobacco abuse Status: Chronic Assessment & Plan: Recommended cessation Not interested in quitting Would like nicorette gum or nicotine patch while here HEATHER STRATTON MD Aug 27, 2017 12:56
[2017-08-27] MEDS ORDERED: LISI-552 PO ×2 (13:09)
[2017-08-27] MEDS ORDERED: TRAZ-28 PO ×2 (13:09)
[2017-08-27] MEDS ORDERED: CLON0.1T PO ×2 (13:09)
[2017-08-27] MEDS ORDERED: CIPR500T4 PO ×2 (13:09)
[2017-08-27] MEDS ORDERED: DIAZ5TAB3 PO ×2 (13:09)
[2017-08-27] MEDS ORDERED: RISP1TAB3 PO ×2 (13:09)
[2017-08-27] MEDS ORDERED: DIAZ10TA3 PO ×2 (13:09)
[2017-08-27] MEDS ORDERED: VENL150C98 PO ×2 (13:09)
[2017-08-27] MEDS ORDERED: GUAI600T43 PO ×2 (13:09)
[2017-08-27] MEDS ORDERED: KCL 10 MEQ TAB (MICRO K) PO NR (13:30)
[2017-08-27] MEDS ORDERED: NICOTINE 7 MG (NICODERM) PATCH TD PRN (13:30)
[2017-08-27] MEDS ORDERED: NICOTINE PATCH REMOVAL TP PRN (13:45)
[2017-08-27] MEDS ORDERED: IBUP-2055 PO ×2 (14:01)
[2017-08-27] MEDS: RT-ALBUTEROL/IPRATROPIUM 3 ML (DUONEB) VIAL INH SCH ×3 (14:57→21:47)
[2017-08-27 16:44] VITALS: BP 139/75
[2017-08-27] MEDS ORDERED: PATIENT MAY USE OWN MEDS, ALL MC SCH (18:00)
[2017-08-27] MEDS ORDERED: IBUPROFEN TABLET 200 MG TAB PO PRN (18:00)
[2017-08-27 20:00] VITALS: BP 128/78
[2017-08-27] MEDS: DIAZEPAM 10 MG PO SCH (21:00)
[2017-08-27] MEDS: traZODone 50 MG (DESYREL) TAB PO SCH (21:50)
[2017-08-27] MEDS: guaiFENesin (MUCINEX) 600 MG TAB PO SCH (21:50)
[2017-08-27] MEDS: cloNIDine 0.1 MG (CATAPRES) TAB PO SCH (21:50)
[2017-08-28 00:04] VITALS: BP 126/79
[2017-08-28] MEDS: RT-ALBUTEROL/IPRATROPIUM 3 ML (DUONEB) VIAL INH SCH ×5 (01:20→19:08)
[2017-08-28 04:00] VITALS: BP 119/60
[2017-08-28 06:58] LABS: BASOPHILS % (AUTO) 0 % (0-10); EOSINOPHILS % (AUTO) 0 % (0-10); LYMPHOCYTES # (AUTO) 1.4 X 10^3 (1.0-4.0); LYMPHOCYTES % (AUTO) 15 % (12-44); MEAN CORPUSCULAR HEMOGLOBIN 34 PG (25-34); MEAN CORPUSCULAR HGB CONC 34 G/DL (32-36); MEAN CORPUSCULAR VOLUME 99 FL (80-99); MEAN PLATELET VOLUME 9.5 FL (7.4-10.4); MONOCYTES # (AUTO) 0.7 X 10^3 (0.0-1.0); MONOCYTES % (AUTO) 7 % (0-12); NEUTROPHILS # (AUTO) 7.4 X 10^3 (1.8-7.8); NEUTROPHILS % (AUTO) 78 % (42-75); PLATELET COUNT 232 10^3/uL (130-400); RED BLOOD COUNT 3.57 10^6/uL (4.35-5.85); RED CELL DISTRIBUTION WIDTH 14.8 % (10.0-14.5); WHITE BLOOD COUNT 9.5 10^3/uL (4.3-11.0)
[2017-08-28] MEDS: VENlafaxine XR 75 MG (EFFEXOR XR) CAP PO SCH (07:11)
[2017-08-28 07:17] LABS: ALANINE AMINOTRANSFERASE 141 U/L (0-55); ALBUMIN 3.6 GM/DL (3.2-4.5); ANION GAP 13 MMOL/L (5-14); ASPARTATE AMINO TRANSFERASE 238 U/L (5-34); BILIRUBIN,TOTAL 0.2 MG/DL (0.1-1.0); BLOOD UREA NITROGEN 8 MG/DL (7-18); BUN/CREATININE RATIO 12; CALCIUM 8.6 MG/DL (8.5-10.1); CARBON DIOXIDE 24 MMOL/L (21-32); CHLORIDE 101 MMOL/L (98-107); CREATININE SERUM 0.67 MG/DL (0.60-1.30); GFR ESTIMATED > 60; GLUCOSE 101 MG/DL (70-105); MAGNESIUM 2.3 MG/DL (1.8-2.4); POTASSIUM 3.6 MMOL/L (3.6-5.0); SODIUM 138 MMOL/L (135-145); TOTAL PROTEIN 6.5 GM/DL (6.4-8.2)
[2017-08-28] MEDS ORDERED: DIAZEPAM 5 MG (VALIUM) TABLET PO SCH ×2 (07:31→09:00)
[2017-08-28 08:00] VITALS: BP 125/67
[2017-08-28] MEDS: DIAZEPAM 10 MG PO SCH ×3 (08:06→21:31)
[2017-08-28] MEDS: DIAZEPAM 5 MG (VALIUM) TABLET PO SCH (08:06)
[2017-08-28] MEDS ORDERED: INFLUENZA TRIvalent 2017-2018 0.5 ML/45 MCG SYR IM ONE (08:30)
[2017-08-28] MEDS ORDERED: NON-FORMULARY MEDICATION 1 EA EA (Venlafaxine HCl (Venlafaxine HCl ER) 300 MG) PO SCH (09:00)
[2017-08-28] MEDS ORDERED: CHLORASEPTIC LOZENGE MM PRN (09:45)
--- NOTE | 2017-08-28 09:50 | Progress Note-Hospitalist ---
Subjective HPI/CC On Admission Date Seen by Provider: Aug 28, 2017 Time Seen by Provider: 09:25 Pt is a 57yoCM with a PMH of tobaccoism, depression, HTN, and anxiety who presented to the ER with CC of cough, congestion, and SOB. This has been going on for 10 days and was recently treated with cipro by his PCP and completed that course. He denies any fevers, sputum, or myalgias. He reports his brother and sister in law had the flu recently. He had not received his flu vaccine this year. He has not had a decreased appetite, nausea, or vomiting but has had some postussive gagging. He was seen in the ER earlier this morning and was hypxic on room air. He was found to be Flu B positive and admission was recommended but he declined and signed out AMA. He alledgedly discussed further with family and presented back to the ER and was direct admitted. Subjective/Events-last exam Reports feeling slightly better. Less cough though does have a sore throat. Requesting cough drops. Objective Exam Vital Signs Vital Sign - Last 12Hours 08/27/17 08/27/17 11:17 12:00 Temp 98.8 Pulse 75 Resp 24 B/P (MAP) 108/57 (74) Pulse Ox 92 O2 Delivery Nasal Cannula O2 Flow Rate 7.00 Capillary Refill : General Appearance: No Apparent Distress, WD/WN Respiratory: No Respiratory Distress, Decreased Breath Sounds Cardiovascular: Regular Rate, Rhythm, No Murmur Gastrointestinal: Normal Bowel Sounds, Non Tender, Soft Extremity: Non Tender, No Calf Tenderness Neurologic/Psychiatric: Alert, Oriented x3 Results/Procedures Lab Laboratory Tests 08/28/17 06:10 Assessment/Plan Assessment and Plan Assess & Plan/Chief Complaint Influenza B Diagnosis/Problems Diagnosis/Problems (1) Influenza B Status: Acute Assessment & Plan: Continue tamiflu Droplet precautions (2) Hypoxia Status: Acute Assessment & Plan: No known oxygen requirement Titrate to keep oxygen >89 MAT protocol Home o2 qualification (3) Transaminitis Status: Acute Assessment & Plan: Remain elevated History of alcohol abuse- likely cause Normal Bili, platelets, albumin Discussed with PCP and had negative HIV and Hep C there but no usg Will order RUQ usg (4) Normocytic anemia Assessment & Plan: Very mild,trend (5) Hypokalemia Status: Acute Assessment & Plan: Will replace (6) Essential (primary) hypertension Status: Chronic Assessment & Plan: Continue home meds (7) Anxiety and depression Assessment & Plan: Continue home meds I confirmed he takes 35mg Valium in AM and 30mg Valium in PM for anxiety with patient and with PCP PCP working on weaning (8) Hypomagnesemia Status: Acute Assessment & Plan: Resolved (9) Tobacco abuse Status: Chronic Assessment & Plan: Recommended cessation Not interested in quitting Would like nicorette gum or nicotine patch while here HEATHER HENSON MD Aug 28, 2017 09:50
[2017-08-28] MEDS: guaiFENesin (MUCINEX) 600 MG TAB PO SCH ×2 (10:12→21:29)
[2017-08-28] MEDS: OSELTAMIVIR 75 MG (TAMIFLU) BOX OF 10 PO SCH ×2 (10:12→21:30)
[2017-08-28] MEDS: risperiDONE 1 MG (RisperDAL) TAB PO SCH (10:13)
[2017-08-28] MEDS: cloNIDine 0.1 MG (CATAPRES) TAB PO SCH ×2 (10:13→21:29)
[2017-08-28] MEDS: lisINopril 20 MG (ZESTRIL) TAB PO SCH (10:13)
--- NOTE | 2017-08-28 11:06 | Diagnostic Imaging Report ---
PROCEDURE: US Abdomen, limited. TECHNIQUE: Multiple realtime grayscale images were obtained over the abdomen in various projections. INDICATION: Elevated transaminases. FINDINGS: The area of the pancreas is obscured by bowel gas. The liver is fairly homogeneous with no focal lesion. The liver is slightly enlarged measuring 19.4 CM in craniocaudal dimension. Hepatopetal flow in the portal vein is seen. There is no gallstone or evidence of cholecystitis. No pericholecystic fluid. Sonographic Padilla sinus is reportedly negative. The right kidney is 11.9 CM in length with no hydronephrosis or focal lesion. No significant fluid collection is seen in the upper right abdomen. IMPRESSION: Mild hepatomegaly. Dictated by: Dictated on workstation # [id number]
[2017-08-28 12:00] VITALS: BP 121/71
[2017-08-28 16:00] VITALS: BP 105/67
[2017-08-28 20:55] VITALS: BP 113/59
[2017-08-28] MEDS: traZODone 50 MG (DESYREL) TAB PO SCH (21:30)
[2017-08-29] VITALS: BP 106/55
[2017-08-29] MEDS: RT-ALBUTEROL/IPRATROPIUM 3 ML (DUONEB) VIAL INH SCH ×6 (03:38→19:06)
[2017-08-29 04:13] VITALS: BP 134/87
[2017-08-29] MEDS: VENlafaxine XR 75 MG (EFFEXOR XR) CAP PO SCH (06:04)
[2017-08-29 06:19] LABS: BASOPHILS % (AUTO) 1 % (0-10); EOSINOPHILS # (AUTO) 0.1 10^3/uL (0.0-0.3); EOSINOPHILS % (AUTO) 2 % (0-10); LYMPHOCYTES # (AUTO) 1.6 X 10^3 (1.0-4.0); LYMPHOCYTES % (AUTO) 25 % (12-44); MEAN CORPUSCULAR HEMOGLOBIN 33 PG (25-34); MEAN CORPUSCULAR HGB CONC 33 G/DL (32-36); MEAN CORPUSCULAR VOLUME 101 FL (80-99); MEAN PLATELET VOLUME 9.7 FL (7.4-10.4); MONOCYTES # (AUTO) 0.5 X 10^3 (0.0-1.0); MONOCYTES % (AUTO) 8 % (0-12); NEUTROPHILS % (AUTO) 64 % (42-75); PLATELET COUNT 225 10^3/uL (130-400); RED CELL DISTRIBUTION WIDTH 14.9 % (10.0-14.5); WHITE BLOOD COUNT 6.3 10^3/uL (4.3-11.0)
[2017-08-29 07:15] LABS: ALANINE AMINOTRANSFERASE 158 U/L (0-55); ALBUMIN 3.5 GM/DL (3.2-4.5); ANION GAP 13 MMOL/L (5-14); ASPARTATE AMINO TRANSFERASE 251 U/L (5-34); BILIRUBIN,TOTAL 0.2 MG/DL (0.1-1.0); BLOOD UREA NITROGEN 10 MG/DL (7-18); BUN/CREATININE RATIO 15; CALCIUM 8.6 MG/DL (8.5-10.1); CARBON DIOXIDE 23 MMOL/L (21-32); CHLORIDE 103 MMOL/L (98-107); CREATININE SERUM 0.67 MG/DL (0.60-1.30); GFR ESTIMATED > 60; GLUCOSE 94 MG/DL (70-105); POTASSIUM 3.9 MMOL/L (3.6-5.0); SODIUM 139 MMOL/L (135-145); TOTAL PROTEIN 6.4 GM/DL (6.4-8.2)
[2017-08-29 08:00] VITALS: BP 124/75
[2017-08-29] MEDS: OSELTAMIVIR 75 MG (TAMIFLU) BOX OF 10 PO SCH ×2 (08:20→20:19)
[2017-08-29] MEDS: lisINopril 20 MG (ZESTRIL) TAB PO SCH (08:21)
[2017-08-29] MEDS: risperiDONE 1 MG (RisperDAL) TAB PO SCH (08:21)
[2017-08-29] MEDS: guaiFENesin (MUCINEX) 600 MG TAB PO SCH ×2 (08:21→20:20)
[2017-08-29] MEDS: cloNIDine 0.1 MG (CATAPRES) TAB PO SCH ×2 (08:21→20:20)
[2017-08-29] MEDS: DIAZEPAM 5 MG (VALIUM) TABLET PO SCH (08:22)
[2017-08-29] MEDS: DIAZEPAM 10 MG PO SCH ×2 (08:23→20:20)
--- NOTE | 2017-08-29 08:27 | Progress Note-Hospitalist ---
Subjective HPI/CC On Admission Date Seen by Provider: Aug 29, 2017 Time Seen by Provider: 08:23 Pt is a 57yoCM with a PMH of tobaccoism, depression, HTN, and anxiety who presented to the ER with CC of cough, congestion, and SOB. This has been going on for 10 days and was recently treated with cipro by his PCP and completed that course. He denies any fevers, sputum, or myalgias. He reports his brother and sister in law had the flu recently. He had not received his flu vaccine this year. He has not had a decreased appetite, nausea, or vomiting but has had some postussive gagging. He was seen in the ER earlier this morning and was hypxic on room air. He was found to be Flu B positive and admission was recommended but he declined and signed out AMA. He alledgedly discussed further with family and presented back to the ER and was direct admitted. Subjective/Events-last exam No complaints. breathing is ok. portable oxygne was delivered to bedside in preparation for possible DC over holiday. Does not feel ready for DC today. Still on oxygen. Objective Exam Vital Signs Vital Sign - Last 12Hours 08/27/17 08/27/17 11:17 12:00 Temp 98.8 Pulse 75 Resp 24 B/P (MAP) 108/57 (74) Pulse Ox 92 O2 Delivery Nasal Cannula O2 Flow Rate 7.00 Capillary Refill : General Appearance: No Apparent Distress, WD/WN Respiratory: No Respiratory Distress, Decreased Breath Sounds Cardiovascular: Regular Rate, Rhythm, No Murmur Gastrointestinal: Normal Bowel Sounds, Non Tender, Soft Extremity: Non Tender, No Calf Tenderness Neurologic/Psychiatric: Alert, Oriented x3 Results/Procedures Lab Laboratory Tests 08/29/17 05:24 Assessment/Plan Assessment and Plan Assess & Plan/Chief Complaint Influenza B Diagnosis/Problems Diagnosis/Problems (1) Influenza B Status: Acute Assessment & Plan: Continue tamiflu Droplet precautions (2) Hypoxia Status: Acute Assessment & Plan: No known oxygen requirement Titrate to keep oxygen >89 MAT protocol Requires 3lpm continuous DME already delivered to bedside Needed 5lpm overnight- no optimized for DC yet (3) Transaminitis Status: Acute Assessment & Plan: Remain elevated History of alcohol abuse- likely cause Normal Bili, platelets, albumin Discussed with PCP and had negative HIV and Hep C there but no usg Usg- reveals only hepatomegaly (4) Normocytic anemia Assessment & Plan: Very mild,trend (5) Hypokalemia Status: Resolved Assessment & Plan: resolved (6) Essential (primary) hypertension Status: Chronic Assessment & Plan: Continue home meds (7) Anxiety and depression Assessment & Plan: Continue home meds I confirmed he takes 35mg Valium in AM and 30mg Valium in PM for anxiety with patient and with PCP PCP working on weaning (8) Hypomagnesemia Status: Acute Assessment & Plan: Resolved (9) Tobacco abuse Status: Chronic Assessment & Plan: Recommended cessation Not interested in quitting Would like nicorette gum or nicotine patch while here HEATHER HENSON MD Aug 29, 2017 08:27
[2017-08-29 16:19] VITALS: BP 125/79
[2017-08-29] MEDS: traZODone 50 MG (DESYREL) TAB PO SCH (20:20)
[2017-08-30] VITALS: BP 110/72
[2017-08-30] MEDS: RT-ALBUTEROL/IPRATROPIUM 3 ML (DUONEB) VIAL INH SCH ×5 (00:02→20:09)
[2017-08-30 06:02] LABS: BASOPHILS % (AUTO) 1 % (0-10); EOSINOPHILS # (AUTO) 0.2 10^3/uL (0.0-0.3); EOSINOPHILS % (AUTO) 3 % (0-10); LYMPHOCYTES # (AUTO) 1.8 X 10^3 (1.0-4.0); LYMPHOCYTES % (AUTO) 28 % (12-44); MEAN CORPUSCULAR HEMOGLOBIN 34 PG (25-34); MEAN CORPUSCULAR HGB CONC 33 G/DL (32-36); MEAN CORPUSCULAR VOLUME 100 FL (80-99); MEAN PLATELET VOLUME 9.5 FL (7.4-10.4); MONOCYTES # (AUTO) 0.6 X 10^3 (0.0-1.0); MONOCYTES % (AUTO) 9 % (0-12); NEUTROPHILS # (AUTO) 3.9 X 10^3 (1.8-7.8); NEUTROPHILS % (AUTO) 60 % (42-75); PLATELET COUNT 242 10^3/uL (130-400); RED BLOOD COUNT 3.76 10^6/uL (4.35-5.85); RED CELL DISTRIBUTION WIDTH 14.7 % (10.0-14.5); WHITE BLOOD COUNT 6.6 10^3/uL (4.3-11.0)
[2017-08-30 06:23] LABS: ALANINE AMINOTRANSFERASE 126 U/L (0-55); ALBUMIN 3.4 GM/DL (3.2-4.5); ANION GAP 13 MMOL/L (5-14); ASPARTATE AMINO TRANSFERASE 122 U/L (5-34); BILIRUBIN,TOTAL 0.3 MG/DL (0.1-1.0); BLOOD UREA NITROGEN 14 MG/DL (7-18); BUN/CREATININE RATIO 21; CALCIUM 8.5 MG/DL (8.5-10.1); CARBON DIOXIDE 22 MMOL/L (21-32); CHLORIDE 103 MMOL/L (98-107); CREATININE SERUM 0.67 MG/DL (0.60-1.30); GFR ESTIMATED > 60; GLUCOSE 97 MG/DL (70-105); POTASSIUM 3.8 MMOL/L (3.6-5.0); SODIUM 138 MMOL/L (135-145); TOTAL PROTEIN 6.2 GM/DL (6.4-8.2)
[2017-08-30] MEDS: VENlafaxine XR 75 MG (EFFEXOR XR) CAP PO SCH (07:30)
[2017-08-30 08:00] VITALS: BP 117/75
[2017-08-30] MEDS: cloNIDine 0.1 MG (CATAPRES) TAB PO SCH ×2 (08:54→20:10)
[2017-08-30] MEDS: lisINopril 20 MG (ZESTRIL) TAB PO SCH (08:55)
[2017-08-30] MEDS: risperiDONE 1 MG (RisperDAL) TAB PO SCH (08:55)
[2017-08-30] MEDS: guaiFENesin (MUCINEX) 600 MG TAB PO SCH ×2 (08:55→20:10)
[2017-08-30] MEDS: OSELTAMIVIR 75 MG (TAMIFLU) BOX OF 10 PO SCH ×2 (08:55→20:11)
[2017-08-30] MEDS: DIAZEPAM 10 MG PO SCH ×2 (09:06→20:10)
[2017-08-30] MEDS: DIAZEPAM 5 MG (VALIUM) TABLET PO SCH (09:06)
--- NOTE | 2017-08-30 11:41 | Progress Note-Hospitalist ---
Subjective HPI/CC On Admission Date Seen by Provider: Aug 30, 2017 Time Seen by Provider: 11:10 Pt is a 57yoCM with a PMH of tobaccoism, depression, HTN, and anxiety who presented to the ER with CC of cough, congestion, and SOB. This has been going on for 10 days and was recently treated with cipro by his PCP and completed that course. He denies any fevers, sputum, or myalgias. He reports his brother and sister in law had the flu recently. He had not received his flu vaccine this year. He has not had a decreased appetite, nausea, or vomiting but has had some postussive gagging. He was seen in the ER earlier this morning and was hypxic on room air. He was found to be Flu B positive and admission was recommended but he declined and signed out AMA. He alledgedly discussed further with family and presented back to the ER and was direct admitted. Subjective/Events-last exam patient is lying in bed is not been getting up at all. He doesn't want to go home. His is concerned that he can not have a shower because of his Hep-Lock. complains of a hoarse voice Review of Systems Pulmonary: Dyspnea Neurological: Weakness Objective Exam Vital Signs Vital Sign - Last 12Hours 08/27/17 08/27/17 08/30/17 11:17 12:00 07:08 Temp 98.8 Pulse 75 Resp 24 B/P (MAP) 108/57 (74) Pulse Ox 92 O2 Delivery Nasal Cannula O2 Flow Rate 7.00 FiO2 21 Capillary Refill : Less Than 3 Seconds General Appearance: No Apparent Distress, WD/WN, Other (flat affect) HEENT: Normal ENT Inspection Neck: Supple Respiratory: Normal Breath Sounds, No Accessory Muscle Use, Decreased Breath Sounds Cardiovascular: Regular Rate, Rhythm, No Gallop, No Murmur Gastrointestinal: Soft Neurologic/Psychiatric: Alert, No Motor/Sensory Deficits, Depressed Affect Skin: Normal Color, Warm/Dry Results/Procedures Lab Laboratory Tests 08/30/17 05:35 Assessment/Plan Assessment and Plan Assess & Plan/Chief Complaint (1) Influenza B Status: Acute Assessment & Plan: Continue tamiflu Droplet precautions (2) Hypoxia Status: Acute Assessment & Plan: No known oxygen requirement Titrate to keep oxygen >89 MAT protocol Requires 3lpm continuous DME already delivered to bedside Needed 5lpm overnight- no optimized for DC yet-we'll recheck a chest x-ray (3) Transaminitis Status: Acute Assessment & Plan: Remain elevated History of alcohol abuse- likely cause Normal Bili, platelets, albumin Discussed with PCP and had negative HIV and Hep C there but no usg Usg- reveals only hepatomegaly (4) Normocytic anemia Assessment & Plan: Very mild,trend (5) Hypokalemia Status: Resolved Assessment & Plan: resolved (6) Essential (primary) hypertension Status: Chronic Assessment & Plan: Continue home meds (7) Anxiety and depression Assessment & Plan: Continue home meds I confirmed he takes 35mg Valium in AM and 30mg Valium in PM for anxiety with patient and with PCP PCP working on weaning (8) Hypomagnesemia Status: Acute Assessment & Plan: Resolved (9) Tobacco abuse Status: Chronic Assessment & Plan: Recommended cessation Not interested in quitting Would like nicorette gum or nicotine patch while here CARIN RUBIN MD Aug 30, 2017 11:41
--- NOTE | 2017-08-30 14:33 | Diagnostic Imaging Report ---
Indication: Hypoxia Comparison: 08/27/17 Findings: 2 views of the chest are obtained. Heart size is normal. The pulmonary vessels appear unremarkable. There is no pneumothorax, mediastinal widening or pleural fluid demonstrated. Some fluid or scarring along the minor fissure on the right is stable as is some minimal atelectasis or scarring at the left lung base. Lungs otherwise clear. Diaphragms are flattened suggestive of COPD. The osseous structures appear unremarkable. Impression: Findings of COPD and bilateral scarring. Atelectasis appears similar to the prior study. No new or acute abnormalities demonstrated. Dictated by: Dictated on workstation # [id number]
[2017-08-30 16:05] VITALS: BP 115/76
[2017-08-30] MEDS: traZODone 50 MG (DESYREL) TAB PO SCH (20:10)
[2017-08-31] VITALS: BP 119/83
[2017-08-31] MEDS: RT-ALBUTEROL/IPRATROPIUM 3 ML (DUONEB) VIAL INH SCH ×2 (03:00→09:26)
[2017-08-31 05:50] LABS: BASOPHILS # (AUTO) 0.1 10^3/uL (0.0-0.1); BASOPHILS % (AUTO) 1 % (0-10); EOSINOPHILS # (AUTO) 0.2 10^3/uL (0.0-0.3); EOSINOPHILS % (AUTO) 3 % (0-10); LYMPHOCYTES % (AUTO) 25 % (12-44); MEAN CORPUSCULAR HEMOGLOBIN 33 PG (25-34); MEAN CORPUSCULAR HGB CONC 33 G/DL (32-36); MEAN CORPUSCULAR VOLUME 100 FL (80-99); MEAN PLATELET VOLUME 9.3 FL (7.4-10.4); MONOCYTES # (AUTO) 0.8 X 10^3 (0.0-1.0); MONOCYTES % (AUTO) 10 % (0-12); NEUTROPHILS # (AUTO) 4.8 X 10^3 (1.8-7.8); NEUTROPHILS % (AUTO) 61 % (42-75); PLATELET COUNT 266 10^3/uL (130-400); RED BLOOD COUNT 3.87 10^6/uL (4.35-5.85); RED CELL DISTRIBUTION WIDTH 14.1 % (10.0-14.5); WHITE BLOOD COUNT 7.9 10^3/uL (4.3-11.0)
[2017-08-31] MEDS: VENlafaxine XR 75 MG (EFFEXOR XR) CAP PO SCH (06:11)
[2017-08-31 06:14] LABS: ALANINE AMINOTRANSFERASE 101 U/L (0-55); ALBUMIN 3.4 GM/DL (3.2-4.5); ANION GAP 12 MMOL/L (5-14); ASPARTATE AMINO TRANSFERASE 83 U/L (5-34); BILIRUBIN,TOTAL 0.2 MG/DL (0.1-1.0); BLOOD UREA NITROGEN 14 MG/DL (7-18); BUN/CREATININE RATIO 20; CALCIUM 8.9 MG/DL (8.5-10.1); CARBON DIOXIDE 23 MMOL/L (21-32); CHLORIDE 104 MMOL/L (98-107); CREATININE SERUM 0.71 MG/DL (0.60-1.30); GFR ESTIMATED > 60; GLUCOSE 98 MG/DL (70-105); POTASSIUM 3.5 MMOL/L (3.6-5.0); SODIUM 139 MMOL/L (135-145); TOTAL PROTEIN 6.3 GM/DL (6.4-8.2)
[2017-08-31 08:21] VITALS: BP 135/85
[2017-08-31] MEDS: guaiFENesin (MUCINEX) 600 MG TAB PO SCH (08:34)
[2017-08-31] MEDS: DIAZEPAM 10 MG PO SCH (08:34)
[2017-08-31] MEDS: risperiDONE 1 MG (RisperDAL) TAB PO SCH (08:34)
[2017-08-31] MEDS: lisINopril 20 MG (ZESTRIL) TAB PO SCH (08:35)
[2017-08-31] MEDS: OSELTAMIVIR 75 MG (TAMIFLU) BOX OF 10 PO SCH (08:35)
[2017-08-31] MEDS: cloNIDine 0.1 MG (CATAPRES) TAB PO SCH (08:35)
[2017-08-31] MEDS: DIAZEPAM 5 MG (VALIUM) TABLET PO SCH (08:37)
[2017-08-31] MEDS ORDERED: OSLT75C PO ×2 (10:22)
[2017-08-31] MEDS ORDERED: NICO-586 TD ×2 (10:22)
--- NOTE | 2017-08-31 10:32 | Discharge Summary-Hospitalist ---
Diagnosis/Chief Complaint Date of Admission Aug 27, 2017 at 10:12 Date of Discharge August 31, 2017 Discharge Date: Aug 31, 2017 Discharge Time: 13:00 Admission Diagnosis Influenza B Discharge Diagnosis (1) Influenza B Status: Acute Assessment & Plan: Continue tamiflu for 2 more days Droplet precautions (2) Hypoxia Status: Acute-oxygenation is now greater than 90 percent on room air Assessment & Plan: No known oxygen requirement (3) Transaminitis Status: Acute Assessment & Plan: Remain elevated History of alcohol abuse- likely cause Normal Bili, platelets, albumin Discussed with PCP and had negative HIV and Hep C there but no usg Usg- reveals only hepatomegaly (4) Normocytic anemia Assessment & Plan: Very mild,trend (5) Hypokalemia Status: Resolved Assessment & Plan: resolved (6) Essential (primary) hypertension Status: Chronic Assessment & Plan: Continue home meds (7) Anxiety and depression Assessment & Plan: Continue home meds I confirmed he takes 35mg Valium in AM and 30mg Valium in PM for anxiety with patient and with PCP PCP working on weaning-we'll discharge on 30 mg twice a day (8) Hypomagnesemia Status: Acute Assessment & Plan: Resolved (9) Tobacco abuse Status: Chronic Assessment & Plan: Recommended cessation Will discharge on a NicoDerm patch 10. COPD-discussed with patient the need for cessation of tobacco use (1) Influenza B Status: Acute Assessment & Plan: Continue tamiflu Droplet precautions (2) Hypoxia Status: Acute Assessment & Plan: No known oxygen requirement Titrate to keep oxygen >89 MAT protocol Requires 3lpm continuous DME already delivered to bedside Needed 5lpm overnight- no optimized for DC yet (3) Transaminitis Status: Acute Assessment & Plan: Remain elevated History of alcohol abuse- likely cause Normal Bili, platelets, albumin Discussed with PCP and had negative HIV and Hep C there but no usg Usg- reveals only hepatomegaly (4) Normocytic anemia Assessment & Plan: Very mild,trend (5) Hypokalemia Status: Resolved Assessment & Plan: resolved (6) Essential (primary) hypertension Status: Chronic Assessment & Plan: Continue home meds (7) Hypomagnesemia Status: Acute Assessment & Plan: Resolved (8) Anxiety and depression Status: Chronic Assessment & Plan: Continue home meds I confirmed he takes 35mg Valium in AM and 30mg Valium in PM for anxiety with patient and with PCP PCP working on weaning (9) Tobacco abuse Status: Chronic Assessment & Plan: Recommended cessation Not interested in quitting Would like nicorette gum or nicotine patch while here (10) COPD (chronic obstructive pulmonary disease) Status: Chronic Discharge Summary Discharge Physical Examination Allergies: Coded Allergies: Tzybcwf-Hhf-Czf Reductase Inhibitor (Verified Allergy, Mild, NAUSEA, ) Sulfa (Sulfonamide Antibiotics) (Unverified Allergy, Unknown, 06/04/14) aspirin (Unverified Allergy, Unknown, 06/04/14) Vitals & I&Os Vital Signs Date Time Temp Pulse Resp B/P (MAP) Pulse Ox O2 Delivery O2 Flow Rate FiO2 08/31/17 09:26 92 Room Air 08/31/17 08:21 98.1 64 18 135/85 (102) 08/30/17 08:00 3.00 08/30/17 07:08 21 Hospital Course patient was admitted and placed on droplet precautions. signs and symptoms of alcohol withdrawal were monitored however the patient was on such a high dose of Valium it was deemed that he was at lower risk. The patient remained with a flat affect and depressed throughout the hospitalization. NicoDerm patch was utilized to help with tobacco cessation. The patient was initially hypoxic and this resolved by the third hospital day. At the time of discharge his oxygen saturations staying above 90 percent with ambulation. follow-up chest x-ray was normal except changes consistent with COPD. Transaminases remained elevated and did not returned to normal although they trended downward. Ultrasound showed hepatomegaly but no evidence of cirrhotic changes at this time. Labs (last 24 hrs) Laboratory Tests 08/31/17 05:25: White Blood Count 7.9, Red Blood Count 3.87L, Hemoglobin 12.8L, Hematocrit 39L, Mean Corpuscular Volume 100H, Mean Corpuscular Hemoglobin 33, Mean Corpuscular Hemoglobin Concent 33, Red Cell Distribution Width 14.1, Platelet Count 266, Mean Platelet Volume 9.3, Neutrophils (%) (Auto) 61, Lymphocytes (%) (Auto) 25, Monocytes (%) (Auto) 10, Eosinophils (%) (Auto) 3, Basophils (%) (Auto) 1, Neutrophils # (Auto) 4.8, Lymphocytes # (Auto) 2.0, Monocytes # (Auto) 0.8, Eosinophils # (Auto) 0.2, Basophils # (Auto) 0.1, Sodium Level 139, Potassium Level 3.5L, Chloride Level 104, Carbon Dioxide Level 23, Anion Gap 12, Blood Urea Nitrogen 14, Creatinine 0.71, Estimat Glomerular Filtration Rate > 60, BUN/ Creatinine Ratio 20, Glucose Level 98, Calcium Level 8.9, Total Bilirubin 0.2, Aspartate Amino Transf (AST/SGOT) 83H, Alanine Aminotransferase (ALT/SGPT) 101H , Alkaline Phosphatase 186H, Total Protein 6.3L, Albumin 3.4 Pending Labs Laboratory Tests 08/31/17 05:25: White Blood Count 7.9, Red Blood Count 3.87, Hemoglobin 12.8, Hematocrit 39, Mean Corpuscular Volume 100, Mean Corpuscular Hemoglobin 33, Mean Corpuscular Hemoglobin Concent 33, Red Cell Distribution Width 14.1, Platelet Count 266, Mean Platelet Volume 9.3, Neutrophils (%) (Auto) 61, Lymphocytes (%) (Auto) 25, Monocytes (%) (Auto) 10, Eosinophils (%) (Auto) 3, Basophils (%) (Auto) 1, Neutrophils # (Auto) 4.8, Lymphocytes # (Auto) 2.0, Monocytes # (Auto) 0.8, Eosinophils # (Auto) 0.2, Basophils # (Auto) 0.1, Sodium Level 139, Potassium Level 3.5, Chloride Level 104, Carbon Dioxide Level 23, Anion Gap 12, Blood Urea Nitrogen 14, Creatinine 0.71, Estimat Glomerular Filtration Rate > 60, BUN/ Creatinine Ratio 20, Glucose Level 98, Calcium Level 8.9, Total Bilirubin 0.2, Aspartate Amino Transf (AST/SGOT) 83, Alanine Aminotransferase (ALT/SGPT) 101, Alkaline Phosphatase 186, Total Protein 6.3, Albumin 3.4 Discharge Home Medications: Active Scripts Active Nicotine Patch (Nicotine) 1 Each Patch.td24 7 Mg TD DAILY@0900 PRN 30 Days Tamiflu (Oseltamivir Phosphate) 75 Mg Cap 1 Each PO BID 2 Days Reported Trazodone HCl 50 Mg Tablet 100 Mg PO HS TAKES 2 (50MG) TABLETS Clonidine HCl 0.1 Mg Tablet 0.2 Mg PO BID TAKES 2 (0.1MG) TABLETS Risperidone 1 Mg Tablet 2 Mg PO DAILY TAKES 2 (1MG) TABLETS Mucinex (Guaifenesin) 600 Mg Tab.er.12h 600 Mg PO BID 10 DAY SUPPLY FILLED 08-18-17 Venlafaxine HCl ER (Venlafaxine HCl) 150 Mg Cap.er.24h 300 Mg PO DAILY TAKES 2 (150MG) CAPSULES Lisinopril 20 Mg Tablet 40 Mg PO DAILY TAKES 2 (20MG) TABLETS Diazepam 10 Mg Tablet 30 Mg PO BID TAKES 3 (10MG) TABLETS Condition at discharge stable and improved Instructions to patient/family Please see electronic discharge instructions given to patient. Clinical Quality Measures DVT/VTE Risk/Contraindication: Risk Factor Score Per Nursin RFS Level Per Nursing on Admit: 4+=Very High Copy Copies To 1: DIONISIO MCKEON DO Problem Qualifiers (1) COPD (chronic obstructive pulmonary disease): COPD type: COPD with acute lower respiratory infection Qualified Codes: J44.0 - Chronic obstructive pulmonary disease with acute lower respiratory infection CARIN RUBIN MD Aug 31, 2017 10:32
[2017-08-31 11:40] VITALS: BP 135/85
== END 2017-08-31 12:20 | disposition home or self-care (01) | DRG 194 ==
LOC: 4TH 10:12
PROVIDERS: ADMIT Family Medicine; ATTEND Family Medicine
DX: J10.1 Influenza due to other identified influenza virus with other respiratory manifestations (principal); J44.0 Chronic obstructive pulmonary disease with (acute) lower respiratory infection; R09.02 Hypoxemia; R74.0 Nonspecific elevation of levels of transaminase and lactic acid dehydrogenase [LDH]; D64.9 Anemia, unspecified; E87.6 Hypokalemia; I10 Essential (primary) hypertension; Z66 Do not resuscitate; F41.9 Anxiety disorder, unspecified; F32.9 Major depressive disorder, single episode, unspecified; E83.42 Hypomagnesemia; F17.210 Nicotine dependence, cigarettes, uncomplicated; Z88.2 Allergy status to sulfonamides; Z88.8 Allergy status to other drugs, medicaments and biological substances
CPT/HCPCS: 36415; 71020; 76705; 80053; 83735; 85025; 94640; 94664; 94760; 94761

== ENCOUNTER → 2019-06-07 | Outpatient (CLI) | payer OTHER ==
[~2019-06-07] MED LIST changes: -BENZ-13 PO; +BENZ100C18 PO; +CIPR500T4 PO; +CLON0.1T PO; +GUAI600T43 PO; +IBUP-2055 PO; +LISI-552 PO; +NICO-586 TD; +OSLT75C PO; +RISP1TAB3 PO; +TRAZ-222 PO; +VENL150C98 PO
[2019-06-07 10:44] LABS: BASOPHILS # (AUTO) 0.1 10^3/uL (0.0-0.1); BASOPHILS % (AUTO) 1 % (0-10); EOSINOPHILS # (AUTO) 0.1 10^3/uL (0.0-0.3); EOSINOPHILS % (AUTO) 1 % (0-10); HEMATOCRIT 37 % (40-54); HEMOGLOBIN 12.4 G/DL (13.3-17.7); LYMPHOCYTES # (AUTO) 2.4 X 10^3 (1.0-4.0); LYMPHOCYTES % (AUTO) 22 % (12-44); MEAN CORPUSCULAR HEMOGLOBIN 33 PG (25-34); MEAN CORPUSCULAR HGB CONC 34 G/DL (32-36); MEAN CORPUSCULAR VOLUME 97 FL (80-99); MEAN PLATELET VOLUME 8.2 FL (7.4-10.4); MONOCYTES # (AUTO) 1.2 X 10^3 (0.0-1.0); MONOCYTES % (AUTO) 11 % (0-12); NEUTROPHILS # (AUTO) 7.3 X 10^3 (1.8-7.8); NEUTROPHILS % (AUTO) 66 % (42-75); PLATELET COUNT 390 10^3/uL (130-400); RED CELL DISTRIBUTION WIDTH 13.2 % (10.0-14.5)
[2019-06-07 11:05] LABS: ALANINE AMINOTRANSFERASE 41 U/L (0-55); ALBUMIN 4.3 GM/DL (3.2-4.5); ALKALINE PHOSPHATASE 182 U/L (40-136); BILIRUBIN,TOTAL 0.3 MG/DL (0.1-1.0); BUN/CREATININE RATIO 7; CALCIUM 9.5 MG/DL (8.5-10.1); CARBON DIOXIDE 24 MMOL/L (21-32); CHLORIDE 94 MMOL/L (98-107); CREATININE SERUM 0.67 MG/DL (0.60-1.30); GFR ESTIMATED > 60; GLUCOSE 96 MG/DL (70-105); POTASSIUM 3.9 MMOL/L (3.6-5.0); SODIUM 131 MMOL/L (135-145); TOTAL PROTEIN 7.6 GM/DL (6.4-8.2)
[2019-06-07 11:13] LABS: BAND NEUTROPHILS 0 %; BASOPHILS % (MANUAL) 0 %; EOSINOPHILS % (MANUAL) 0 %; LYMPHOCYTES % (MANUAL) 28 %; MONOCYTES % (MANUAL) 8 %; NEUTROPHILS % (MANUAL) 64 %; RBC MORPH NORMAL
--- NOTE | 2019-06-07 11:18 | Diagnostic Imaging Report ---
INDICATION: Left extremity swelling and pain TECHNIQUE: Grayscale with color-flow and Doppler waveform evaluation of the left lower extremity deep venous system. CORRELATION STUDY: None FINDINGS: Color and grayscale sonographic images demonstrate no intraluminal defect within the visualized portion of the common femoral, superficial femoral and/or popliteal veins to suggest thrombus formation. These vessels demonstrate normal response to compression and augmentation. No soft tissue fluid collection. IMPRESSION: 1. Negative for deep venous thrombosis of the left leg. Dictated by: Dictated on workstation # [id number]
--- NOTE | 2019-06-07 11:32 | Diagnostic Imaging Report ---
INDICATION: Left foot pain and swelling. COMPARISON: None FINDINGS: 3 views of the left foot demonstrate angulated but nondisplaced fractures of the distal 2nd, 3rd and 4th metatarsals. There is no intra-articular involvement. Moderate soft tissue swelling is seen. There is no radiopaque foreign body. IMPRESSION: Nondisplaced but angulated fractures of the very distal 2nd, 3rd and 4th metatarsals. No intra-articular involvement is seen. Called to Apryl at 11:29 a.m. by cvb. Dictated by: Dictated on workstation # [id number]
== END ==
LOC: RAD 10:26
PROVIDERS: ATTEND Nurse Practitioner Family
DX: M79.89 Other specified soft tissue disorders (principal); S92.312A Displaced fracture of first metatarsal bone, left foot, initial encounter for closed fracture; S92.332A Displaced fracture of third metatarsal bone, left foot, initial encounter for closed fracture; S92.322A Displaced fracture of second metatarsal bone, left foot, initial encounter for closed fracture
CPT/HCPCS: 36415; 73630; 80053; 84550; 85007; 85027; 85379; 86141